=== PATIENT | male | born 1965 | race Caucasian/White ===

== ENCOUNTER 2020-04-10 16:32 | Outpatient (RCR) | payer SELFPAY ==
--- NOTE | 2020-04-10 18:05 | PTOPEVAL ---
Thank you for referring Matthew Pettit to [facility]. Please review, sign, date and return this plan of care [facility]. I agree with and certify that the following plan of care is medically necessary. Referring Physician Date Admitting Provider: Attending Provider: Casey Goldman M.D. Referring Provider: *PT Outpatient Evaluation Start: 04/10/20 17:12 Freq: Status: Active Protocol: Document 04/10/20 17:12 [facility]IL[place] (Rec: 04/10/20 17:56 [facility] [email or web address]) Therapy Assessment Status Assessment Status Assessment Status Evaluation Evaluation Information Problem Diagnosis CVA Onset 03/17/20 Subjective Information Pt. reports that he suffered a Query Text:As Reported By Patient/ stroke on 03/17/20. He Family reports that he was sent to the hospital and recieved CT scan, which revealed stroke. He reports he was in acute care for 1 week. He then was transfered to a rehab bed and discharged on 04/07/20. He states that his left arm has been most affected. He reports that the left leg is also weak. He is using a elvin walker currently. He reports that his goal is to improve l .e. strength and u.e. strength . Prior Level of Function Activity Level (Last 3 Months) Occupation rigging worker Hand Dominance Right Activity of Daily Living Ability Independent Indoor/Home Mobility Independent Community Mobility Independent Stairs Ability Independent Functional Cognition (Planning, Shopping Independent , Taking Medications) Cooking Yes Cleaning Yes Laundry Yes Shopping Yes Driving Yes Home Setting Home Type House Environmental Barriers Stairs, 2-4 Living Situation With Significant Other Support Available Local Family Support Mobility Assistive Devices (Used Last 3 Walker, Elvin Months) Pain Assessment Timing of Pain Assessment Timing of Pain Assessment Pre-Treatment Pain Scale Pain Scale Used Numeric (1 - 10) Self Report Pain Assessment Left Shoulder(s) Reported Pain Level 4 Pain Score Pain Score 4: Self Report
--- NOTE | 2020-04-19 16:09 | OTOPEVAL ---
Thank you for referring Matthew Pettit to [facility]. Please review, sign, date and return this plan of care JOHN. I agree with and certify that the following plan of care is medically necessary. Referring Physician Date Admitting Provider: Attending Provider: Casey Goldman M.D. Referring Provider: *OT Outpatient Evaluation Start: 04/19/20 15:03 Freq: Status: Active Protocol: Document 04/19/20 15:04 MBS (Rec: 04/19/20 16:09 [id number]) Therapy Assessment Status Assessment Status Assessment Status Evaluation Outpatient Past Medical History Neurological History Hx Cerebrovascular Accident (CVA) Yes Cardiovascular History Hx Hypertension Yes Evaluation Information Problem Diagnosis L sided weakness Onset 03/17/20 Cause CVA Subjective Information Patient reports that he had a Query Text:As Reported By Patient/ stroke on 03/17/20 while at [facility]. He initially went to ER at [place] and was transferred to [place] where he was for ~1 week. He went back to [place] for 2 weeks as a swing bed patient. Patient is currently on a soft diet and regular liquids. Patient returned home on with his girlfriend. He reports that his sister has assisted him as well. Since returning home, patient has needed assistance for medication managment, cooking. Patient reports that he able to do most of his dressing and grooming without assist as well as performs sponge bathing. Patient has a sling for his L shoulder that he uses intermittently. Previous Treatments Previous Treatments For This Problem swing bed patient, inpatient rehab Prior Level of Function Activity Level (Last 3 Months) Hand Dominance Right Activity of Daily Living Ability Independent Indoor/Home Mobility Independent Community Mobility Independent Stairs Ability Independent Functional Cognition (Planning, Shopping Independent , Taking Medications) Cooking Yes Cleaning Yes Laundry
--- NOTE | 2020-04-19 17:18 | OTOPEVAL ---
Thank you for referring Matthew Pettit to [facility]. Please review, sign, date and return this plan of care JOHN. I agree with and certify that the following plan of care is medically necessary. Referring Physician Date Admitting Provider: Attending Provider: Casey Goldman M.D. Referring Provider: *OT Outpatient Evaluation Start: 04/19/20 15:03 Freq: Status: Active Protocol: Document 04/19/20 15:04 MBS (Rec: 04/19/20 16:09 [place] [id number]) Therapy Assessment Status Assessment Status Assessment Status Evaluation Outpatient Past Medical History Neurological History Hx Cerebrovascular Accident (CVA) Yes Cardiovascular History Hx Hypertension Yes Evaluation Information Problem Diagnosis L sided weakness Onset 03/17/20 Cause CVA Subjective Information Patient reports that he had a Query Text:As Reported By Patient/ stroke on 03/17/20 while at Family [facility]. He initially went to ER at [place] and was transferred to [place] where he was for ~1 week. He went back to [place] for 2 weeks as a swing bed patient. Patient is currently on a soft diet and regular liquids. Patient returned home on with his girlfriend. He reports that his sister has assisted him as well. Since returning home, patient has needed assistance for medication managment, cooking. Patient reports that he able to do most of his dressing and grooming without assist as well as performs sponge bathing. Patient has a sling for his L shoulder that he uses intermittently. Previous Treatments Previous Treatments For This Problem swing bed patient, inpatient rehab Prior Level of Function Activity Level (Last 3 Months) Hand Dominance Right Activity of Daily Living Ability Independent Indoor/Home Mobility Independent Community Mobility Independent Stairs Ability Independent Functional Cognition (Planning, Shopping Independent , Taking Medications) Cooking Yes Cleaning Yes Laundry
== END 2020-06-07 18:02 | disposition home or self-care (01) ==
LOC: CHSPT 16:32
PROVIDERS: PCP Family Medicine; Visit Provider Family Medicine
DX: R53.1 Weakness (principal); R26.9 Unspecified abnormalities of gait and mobility; I63.9 Cerebral infarction, unspecified
CPT/HCPCS: 97014; 97110; 97112; 97116; 97161; 97165; 97530; G0283

== ENCOUNTER 2021-04-30 18:44 | Emergency (ER) | payer SELFPAY ==
--- NOTE | ~2021-04-30 | CT_ITS ---
EXAMINATION: CT abdomen pelvis wo con DATE: 04/30/2021 21:41 INDICATION: Right flank pain TECHNIQUE: Computed tomography (CT) of the abdomen and pelvis was performed without intravenous contr ast. The dose-length product (DLP) was 545.49 mGy-cm. Automated exposure control and iterative recons truction technique were employed. COMPARISON: 04/09/2017 FINDINGS: The lung bases are clear. The heart size is normal. The liver, spleen, pancreas, gallbladde r, and adrenal glands are normal. There is a 1.8 cm cyst of the left kidney. There is a 10 mm stone i n the right renal pelvis. There is mild hydroureteronephrosis of the proximal right ureter. Fat stran ding is seen surrounding the right renal pelvis. A 9 mm stone is present in the right kidney lower po le. Additional punctate stones are present in the mid and upper pole of the right kidney. There is a 5 mm nonobstructing stone of the left kidney. No pathologically enlarged abdominal or pelvic lymph no mariaelena are identified. There is no free intraperitoneal gas or evidence of bowel obstruction. The append ix is normal. There is calcified atherosclerosis of the aorta and many of the other arteries. There i s mild lumbar spondylosis. IMPRESSION: 1. Stone in a lower pole calyx of the right kidney with mild proximal hydroureteronephrosis on the ri ght and fat stranding surrounding the right renal pelvis, consistent with urinary tract infection. 2. Bilateral nephrolithiasis. Reviewed, dictated and finalized at location A. IMPRESSION: 1. Stone in a lower pole calyx of the right kidney with mild proximal hydrouret eronephrosis on the right and fat stranding surrounding the right renal pelvis, consistent with urinary tract infection. 2. Bilateral nephrolithiasis.
[2021-04-30 19:15] VITALS: BP 168/108; PULSE 95; RESP 20; TEMP 37.2; O2SAT 97
--- NOTE | 2021-04-30 20:40 | ED.ABDPAIN ---
HPI - Abdominal Pain General Chief Complaint: Urogenital-Male Stated Complaint: possible kidney stones Time Seen by Provider: 04/30/21 20:40 Source: patient Mode of arrival: ambulatory Limitations: no limitations History of Present Illness HPI narrative: 55-year-old man with a history of kidney stones comes in today complaining of right flank pain and burning with urination that been present for last 3 days. Patient states he was unable to sleep last night due to the pain. He has had some nausea but no vomiting. Denies fever, chest pain, other abdominal pain, cough, shortness of breath, sore throat and cold symptoms. MD elicited complaint: flank pain Pertinent past history: kidney stones Onset (ago): day(s) (3) Pain Consistency: colicky Location: R flank Severity: severe Quality: sharp Radiation: epigastric Migration to: no migration Exacerbating factors: nothing Relieving factors: nothing Context: confirms history of similar episodes ( patient states that feels like prior episodes of kidney stones.) Associated symptoms: nausea and dysuria Related Data Allergies Allergy/AdvReac Type Severity Reaction Status Date / Time IVP dye Allergy Intermediate Uncoded 01/07/20 13:07 Review of Systems Review of Systems: All systems reviewed & are unremarkable except as noted in HPI and below Constitutional: Constitutional: Denies chills and Denies fever(s) Eyes: Eyes: Denies change in vision and Denies photophobia ENT: Denies nasal congestion and Denies sore throat Cardiovascular: Cardiovascular: Denies chest pain and Denies radiating jaw, neck or arm pain Respiratory: Respiratory: Denies cough and Denies dyspnea Gastrointestinal: Gastrointestinal: Reports abdominal pain, Denies diarrhea, Reports nausea and Denies vomiting Genitourinary: Genitourinary: Denies hematuria, Reports dysuria and Denies urinary frequency Musculoskeletal: Musculoskeletal: Reports as per HPI, Reports back pain ( flank pain), Denies arthralgias and Denies joint swelling Integumentary/Breasts: Skin/Breast: Denies pruritus, Denies erythema and Denies rash Neurologic: Denies vertigo, Denies dizziness and Denies syncope Endocrine: Endocrine: Denies polydipsia and Denies polyuria Hematologic/Lymphatic: Hematologic/Lymphatic: Denies easy bleeding and Denies easy bruising Allergic/Immunologic: Allergic/Immunologic: Denies lip swelling and Denies throat swelling PMFSH Past Medical History Medical History CVA (cerebral vascular accident) Hypertension Type 2 diabetes mellitus Urolithiasis Surgical History Surgical History H/O lithotripsy H/O nephrolithotomy with removal of calculi x2 Hx of tonsillectomy Social History Social History Smoking status: Never smoker Alcohol intake: never Substance use: never Living arrangements: with family Exam Const: General: healthy appearing and alert Orientation/consciousness: patient oriented x3 Limitations: no limitations Other: moderate acute distress. HENMT: Head: normal to inspection Ears: external ears normal, TM's normal bilaterally and EAC's normal General nose exam: Normal nares present Face and sinus: normal facial exam Mouth: Yes moist mucous membranes Throat: posterior oropharynx normal Eyes: Conjunctivae: conjunctivae normal Pupils: Equal, round and reactive pupils present EOM: EOMs intact bilaterally Resp: Effort & Inspection: normal respiratory effort and not labored Auscultation: clear to auscultation bilaterally, no rales, no rhonchi and no wheezes Cardio: Rate: regular rate Rhythm: regular rhythm Heart sounds: no murmurs GI: GI Palp: Yes Soft to palpation, Yes Tenderness to palpation present (GI) ( right flank), No Guarding due to palpation present (GI) and No Rebound tenderness present Auscultation: nor
[2021-04-30] MEDS: HYDROmorphone HCL INJ (*CRX) 2 MG/ML VIAL 0.5 MG IV PUSH (21:00)
[2021-04-30] MEDS: PANTOPRAZOLE SODIUM IV 40 MG VIAL IV PUSH (21:00)
[2021-04-30 21:02] LABS: Add Urine Microscopic? YES; Appearance Urine Clear (Clear); Bilirubin Urine Negative (Negative); Blood Urine Negative (Negative); Color Urine Light Yellow (Yellow); Glucose Urine UA Negative (Negative); Ketones Urine Negative (Negative); Leukocyte Esterase Ur Negative LEU/UL (Negative); Nitrate Urine Negative (Negative); Protein Urine Trace (Negative); Specific Grav Ur 1.025 (1.010-1.020)
[2021-04-30] MEDS: SODIUM CHLORIDE 0.9% IV 1,000 ML 999 ML IV CONT (21:02)
[2021-04-30] MEDS: ONDANSETRON INJ 4 MG/2 ML VIAL IV PUSH (21:03)
[2021-04-30 21:05] LABS: Basophils Absolute Auto 0.11 K/mm3 (0.00-0.10); Basophils Percent Auto 1.5 % (0.0-1.0); Eosinophils Absolute Auto 0.33 K/mm3 (0.02-0.50); Eosinophils Percent Auto 4.4 % (1.0-6.0); Hematocrit 47.7 % (40.0-54.0); Hemoglobin 16.2 g/dL (14.0-18.0); Immature Granulocyte Absolute 0.02 K/mm3 (0.00-0.00); Immature Granulocyte Percent A 0.3 % (0.0-0.0); Lymphocytes Absolute Auto 2.31 K/mm3 (1.10-4.50); Lymphocytes Percent Auto 30.5 % (18.0-42.0); Mean Corpuscular Hemoglobin 28.9 pg (27.0-31.0); Mean Corpuscular Volume 85.2 fL (78.0-102.0); Mean Platelet Volume 11.1 fl (8.7-11.0); Monocytes Absolute Auto 0.48 K/mm3 (0.10-0.90); Monocytes Percent Auto 6.3 % (2.0-11.0); Neutrophils Absolute Auto 4.3 K/mm3 (1.7-7.2); Platelet Count Result 185 K/mm3 (150-420); Red Cell Distribution Width 12.2 % (11.6-14.4); White Blood Count 7.6 K/mm3 (4.8-10.8)
[2021-04-30 21:07] LABS: Bacteria Urine Trace /hpf; RBC Urine 0-2 /hpf (0-2); WBC Urine 0-3 /hpf (0-3)
[2021-04-30 21:15] LABS: Alanine Aminotransferase 25 U/L (16-63); Albumin Level 3.7 g/dL (3.4-5.0); Alkaline Phosphatase 79 U/L (46-116); Anion Gap 13 mmol/L (8-16); Aspartate Amino Transferase 13 U/L (15-37); Bilirubin,Total 0.4 mg/dL (0.00-1.00); Blood Urea Nitrogen 15 mg/dL (7-18); Calcium 8.6 mg/dL (8.5-10.1); Carbon Dioxide 26 mmol/L (21-32); Chloride 103 mmol/L (98-108); Estimated CRCL calculation 85 ml/min; Estimated Glomerular Filt Rate > 60; Glucose 215 mg/dL (70-99); Lipase 115 U/L (73-393); Osmolality Calculated 300 mOsm/kg (285-295); Potassium 3.3 mmol/L (3.5-5.1); Sodium 142 mmol/L (136-145); Total Protein 7.1 g/dL (6.4-8.2)
--- NOTE | 2021-04-30 21:30 | PC.NURSE ---
pt to xray per stretcher with xray staff.
--- NOTE | 2021-04-30 21:45 | PC.NURSE ---
pt returned to room. no complaints voiced. awaiting ct results
--- NOTE | 2021-04-30 22:24 | ECG_ITS ---
Measurements Intervals [place] Rate: 67 P: 30 AL: 198 QRS: 46 QRSD: 96 T: 26 QT: 398 QTc: 423 Interpretive Statements SINUS RHYTHM INCOMPLETE RIGHT BUNDLE BRANCH BLOCK DELAYED PRECORDIAL R/S TRANSITION CONSIDER INFERIOR INFARCT, AGE INDETERMINATE BASELINE ARTIFACT- II, III, AVF ABNORMAL ECG Electronically Signed On 05-01-2021 6:38:12 CDT by Harry Carreno D.O.
[2021-04-30] MEDS: lisinopriL 5 MG TABLET PO (23:05)
[2021-04-30 23:19] VITALS: BP 197/111; PULSE 77; RESP 20; TEMP 36.9; O2SAT 93
== END 2021-04-30 23:30 | disposition home or self-care (01) ==
PROVIDERS: Emergency Provider Emergency Medicine
DX: N20.9 Urinary calculus, unspecified (principal); N39.0 Urinary tract infection, site not specified
CPT/HCPCS: 36415; 74176; 80053; 81001; 83605; 83690; 85025; 93005; 96374; 96375; 99283; 99284; A9270; C9113; J1170; J2405; J7030

== ENCOUNTER 2021-06-03 18:26 | Emergency (ER) | payer OTHER, SELFPAY ==
[2021-06-03 18:26] VITALS: BP 164/112; PULSE 96; RESP 16; TEMP 36.1; O2SAT 96
--- NOTE | 2021-06-03 18:42 | ED.URI ---
HPI - URI/Sore Throat General Chief Complaint: Upper Respiratory Infection Stated Complaint: Runny nose, Can not tell taste or smell. Time Seen by Provider: 06/03/21 18:42 Source: patient Mode of arrival: ambulatory Limitations: no limitations History of Present Illness HPI Narrative: 55-year-old man with a history of type 2 diabetes and nephrolithiasis comes in today complaining of 2 days of nasal congestion, body aches, feeling warm and cold and lack of smell and taste. States he has had the COVID vaccine. He denies chest pain, shortness of breath, vomiting, diarrhea and sick exposures. In 2 weeks he is due to have surgery for kidney stone. MD elicited complaint: cough, rhinorrhea and nasal congestion Onset (ago): day(s) (2) Consistency: constant Severity: mild Able to tolerate fluids by mouth: Yes Exacerbating factors: nothing Relieving factors: nothing Associated symptoms: fever, chills, myalgias, diaphoresis, rhinorrhea, nasal congestion and sore throat Treatments prior to arrival: none Related Data Allergies Allergy/AdvReac Type Severity Reaction Status Date / Time IVP dye Allergy Intermediate Uncoded 01/07/20 13:07 Review of Systems Review of Systems: All systems reviewed & are unremarkable except as noted in HPI and below Constitutional: Constitutional: Reports chills and Reports fever(s) Eyes: Eyes: Denies change in vision and Denies photophobia ENT: Denies dysphagia, Reports nasal congestion and Reports sore throat Cardiovascular: Cardiovascular: Denies chest pain and Denies radiating jaw, neck or arm pain Respiratory: Respiratory: Reports cough and Denies dyspnea Gastrointestinal: Gastrointestinal: Denies abdominal pain, Denies nausea and Denies vomiting Musculoskeletal: Musculoskeletal: Denies back pain, Denies arthralgias, Denies joint swelling and Denies muscle cramps Integumentary/Breasts: Skin/Breast: Denies pruritus, Denies erythema and Denies rash Neurologic: Denies vertigo, Denies dizziness and Denies syncope Hematologic/Lymphatic: Hematologic/Lymphatic: Denies easy bleeding and Denies easy bruising Allergic/Immunologic: Allergic/Immunologic: Denies lip swelling and Denies throat swelling PMFSH Past Medical History Medical History CVA (cerebral vascular accident) Hypertension Type 2 diabetes mellitus Urolithiasis Surgical History Surgical History H/O lithotripsy H/O nephrolithotomy with removal of calculi x2 Hx of tonsillectomy Social History Social History Smoking status: Never smoker Alcohol intake: never Substance use: never Exam Const: General: no acute distress and alert Orientation/consciousness: patient oriented x3 Limitations: no limitations HENMT: Head: normal to inspection Ears: external ears normal, TM's normal bilaterally and EAC's normal General nose exam: Normal nares present Face and sinus: normal facial exam Mouth: Yes moist mucous membranes Throat: posterior oropharynx normal Eyes: Conjunctivae: conjunctivae normal Pupils: Equal, round and reactive pupils present EOM: EOMs intact bilaterally Resp: Effort & Inspection: normal respiratory effort and not labored Auscultation: clear to auscultation bilaterally, no rales, no rhonchi and no wheezes Cardio: Rate: regular rate Rhythm: regular rhythm Heart sounds: no murmurs Skin: General skin exam: normal color, no jaundice and no pallor Rashes: no rashes Neuro: General: patient oriented x3, moves all extremities, no focal motor deficits and CN's II-XI intact bilaterally Speech: normal speech Gait exam (Neuro): Normal gait present Extrem: General: no clubbing, cyanosis or edema Psych: Appearance: grossly abnormal and poorly kempt Mental Status: mental status grossly abnormal Affect: No normal affect Attitude: not cooperative
[2021-06-03 19:17] LABS: Influenza Control Valid (Valid); SARS-CoV-2 Ag Positive (Negative)
[2021-06-03 19:40] VITALS: BP 178/97; PULSE 94; RESP 18; TEMP 36.6; O2SAT 96
== END 2021-06-03 19:51 | disposition home or self-care (01) ==
PROVIDERS: Emergency Provider Emergency Medicine
DX: U07.1 COVID-19 (principal)
CPT/HCPCS: 87426; 87804; 99283; C9803

== ENCOUNTER 2022-02-08 12:52 | Emergency (ER) | payer OTHER, SELFPAY ==
[2022-02-08 12:55] VITALS: BP 201/110; PULSE 80; RESP 16; TEMP 36.2; O2SAT 97
[2022-02-08 13:10] LABS: Glucose Point of Care 192 mg/dl (65-105)
[2022-02-08 13:15] VITALS: BP 168/103; PULSE 82; RESP 16; O2SAT 96
--- NOTE | 2022-02-08 13:15 | ED.DIZZY ---
HPI - Dizziness General Chief Complaint: Dizziness Stated Complaint: DIZZY AND NAUSEATED Time Seen by Provider: 02/08/22 13:15 Source: patient and RN notes reviewed Mode of arrival: ambulatory Limitations: no limitations History of Present Illness MD elicited complaint: dizziness Onset (ago): day(s) (1) Timing: gradual onset Severity: moderate Description: room spinning and off-balance Context: change in body position History of similar symptoms: Yes Exacerbating factors: change in body position Relieving factors: remaining still Associated symptoms: nausea Related Data Allergies Allergy/AdvReac Type Severity Reaction Status Date / Time IVP dye Allergy Intermediate Hives Uncoded 02/08/22 13:30 Review of Systems Review of Systems: All systems reviewed & are unremarkable except as noted in HPI and below PMFSH Past Medical History Medical History CVA (cerebral vascular accident) Hypertension Type 2 diabetes mellitus Urolithiasis Surgical History Surgical History H/O lithotripsy H/O nephrolithotomy with removal of calculi x2 Hx of tonsillectomy Social History Social History Smoking status: Never smoker Alcohol intake: never Substance use: never Exam Const: General: healthy appearing, no acute distress and alert Nutritional Appearance: well nourished Orientation/consciousness: patient oriented x3 HENMT: Head: normal to inspection Face and sinus: normal facial exam Mouth: Yes moist mucous membranes Eyes: Conjunctivae: conjunctivae normal Pupils: Equal, round and reactive pupils present EOM: EOMs intact bilaterally Neck: Neck: normal visual inspection Resp: Effort & Inspection: normal respiratory effort Auscultation: clear to auscultation bilaterally Cardio: Rate: regular rate Rhythm: regular rhythm GI: Auscultation: normal bowel sounds Back/Spine/Pelvis: Cervical Spine: cervical ROM normal Thoracic/Lumbar Spine: thoraco-lumbar ROM normal Skin: General skin exam: normal color Neuro: General: patient oriented x3, moves all extremities, no meningeal signs, no focal motor deficits and CN's II-XI intact bilaterally Cranial nerves: Yes Nystagmus not present Speech: normal speech Gait exam (Neuro): Normal gait present Extrem: General: normal to inspection and no clubbing, cyanosis or edema Psych: Appearance: grossly normal and well kempt Mental Status: mental status grossly normal Affect: normal affect Attitude: cooperative Thought content: Yes Normal thought content present Course Course Emergency Course: patient improved after meclizine his dizziness is better. Blood pressure improved following clonidine. Vital Signs Vital signs: Vital Signs Temperature 36.2 C L 02/08/22 12:55 Pulse Rate 80 02/08/22 12:55 Respiratory Rate 16 02/08/22 12:55 Blood Pressure 201/110 H 02/08/22 12:55 Pulse Oximetry 97 02/08/22 12:55 Temperature 36.2 C L 02/08/22 12:55 Pulse Rate 70 02/08/22 15:00 Respiratory Rate 18 02/08/22 15:00 Blood Pressure 126/76 02/08/22 15:00 Pulse Oximetry 98 02/08/22 15:00 MDM - Dizziness Lab Data Labs: Lab Results 02/08/22 Range/Units 13:08 POC Capillary Glucose 192 H (65-105) mg/dl Discharge Plan Discharge Clinical Impression: Benign paroxysmal positional vertigo Qualifiers: Laterality: unspecified laterality Qualified Code(s): H81.10 - Benign paroxysmal vertigo, unspecified ear Hypertension Qualifiers: Hypertension type: primary hypertension Qualified Code(s): I10 - Essential (primary) hypertension Patient Disposition: Home, Self-Care Condition: Stable Instructions: Benign Paroxysmal Positional Vertigo (ED) Additional Instructions: Follow-up with your primary care physician in the next 10-14 days to get back on blood pressure medicines.
[2022-02-08] MEDS: cloNIDine HCL 0.1 MG TABLET 0.3 MG PO (13:21)
[2022-02-08] MEDS: MECLIZINE HCL 25 MG TABLET PO (13:34)
[2022-02-08 13:45] VITALS: BP 161/102; PULSE 80; RESP 16; O2SAT 97
[2022-02-08] MEDS: ONDANSETRON HCL ODT 4 MG TABLET PO (14:26)
--- NOTE | 2022-02-08 14:28 | PC.NURSE ---
PT REPORTS NAUSEA, ERP WAS NOTIFIED. PT THEN BEGINS TO HAVE DRY HEAVES. MEDICATION ADMINISTERED ORDERED. WILL CONTINUE TO MONITOR PRIOR TO DISCHARGING PT HOME.
[2022-02-08 14:30] VITALS: BP 140/86; PULSE 73; RESP 18; O2SAT 98
[2022-02-08 15:00] VITALS: BP 126/76; PULSE 70; RESP 18; O2SAT 98
== END 2022-02-08 15:00 | disposition home or self-care (01) ==
PROVIDERS: Emergency Provider Emergency Medicine
DX: H81.10 Benign paroxysmal vertigo, unspecified ear (principal); I10 Essential (primary) hypertension
CPT/HCPCS: 82948; 99283; A9270

== ENCOUNTER 2022-02-15 20:14 | Emergency (ER) | payer OTHER, SELFPAY ==
[2022-02-15] VITALS (35 sets, daily range): BP systolic 118–183; BP diastolic 67–126; PULSE 76–89; RESP 9–30; TEMP 36.5; O2SAT 86–99
--- NOTE | ~2022-02-15 | XR_ITS ---
EXAMINATION: XR chest 1V portable DATE: 02/15/2022 21:23 INDICATION: Chest pain. TECHNIQUE: A single frontal view of the chest was obtained. COMPARISON: CT abdomen and pelvis 02/15/2022 FINDINGS: There is no pneumonia, pleural effusion, or pneumothorax. The heart size is normal. IMPRESSION: 1. No acute cardiopulmonary disease. Reviewed, dictated and finalized at location A.
--- NOTE | ~2022-02-15 | CT_ITS ---
EXAMINATION: CT abdomen pelvis wo con DATE: 02/15/2022 21:23 INDICATION: Nausea and vomiting. TECHNIQUE: Computed tomography (CT) of the abdomen and pelvis was performed without intravenous contr ast. Automated exposure control and iterative reconstruction technique were employed. The dose-length product was 1565.62 mGy-cm. COMPARISON: CT abdomen and pelvis 04/30/2021 FINDINGS: The visualized portions of the lung bases demonstrate mild atelectasis. There is mild scarr ing in paraspinal right lower lobe. No pleural effusion. The heart size is normal. There are coronary artery calcifications. No pericardial effusion. The liver, gallbladder, spleen, pancreas, adrenal gl ands, and right kidney are normal. There is an 18 mm cyst in left kidney. There are two 1 mm stones i n left kidney. The prostate is mildly enlarged. There is diverticulosis of the colon without evidence of diverticulitis. The appendix is normal. There are no dilated loops of bowel. There are no patholo gically enlarged lymph nodes. There is no free intraperitoneal fluid. There is prominent fat in right inguinal canal that may be a hernia. There is mild lumbar spondylosis. There are bridging endplate o steophytes at multiple levels in the thoracic spine, consistent with diffuse idiopathic skeletal hype rostosis (DISH). IMPRESSION: 1. No etiology for the patient's symptoms. Reviewed, dictated and finalized at location A.
--- NOTE | ~2022-02-15 | CT_ITS ---
EXAMINATION: CT brain wo con DATE: 02/15/2022 21:23 INDICATION: Facial weakness. TECHNIQUE: Computed tomography (CT) of the head was performed without intravenous contrast. The mA wa s adjusted according to patient size. Iterative reconstruction technique was employed. The dose-lengt h product was 681.00 mGy-cm. COMPARISON: None FINDINGS: There are scattered areas of low attenuation in the cerebral white matter. There is an old infarct involving the right basal ganglia and right internal capsule. There is an old infarct in the right cerebellum. There is no intracranial hemorrhage, acute infarction, or abnormal intracranial mas s lesion. The ventricles are normal in size. The orbits are normal. There is mild mucosal thickening in the paranasal sinuses. The mastoid air cells are normal. IMPRESSION: 1. Old infarcts involving the right basal ganglia, right internal capsule, and right cerebellum. 2. Moderate nonspecific cerebral white matter disease, which likely represents chronic small vessel i schemic disease. Reviewed, dictated and finalized at location A. IMPRESSION: 1. Old infarcts involving the right basal ganglia, right internal capsule, and right cerebellum. 2. Moderate nonspecific cerebral white matter disease, which likely represents chronic small vessel ischemic disease.
--- NOTE | 2022-02-15 20:23 | ECG_ITS ---
Measurements Intervals [place] Rate: 77 P: 62 [place]: 188 QRS: 40 QRSD: 113 T: 48 QT: 385 QTc: 438 Interpretive Statements SINUS RHYTHM INCOMPLETE RIGHT BUNDLE BRANCH BLOCK INFERIOR INFARCT, AGE INDETERMINATE BORDERLINE ST-T WAVE ABNORMALITY- ANTEROLATERAL LEADS BASELINE ARTIFACT- II, III, AVF ABNORMAL ECG Electronically Signed On 02-15-2022 21:37:27 CDT by Harry Carreno D.O.
[2022-02-15] MEDS: METOPROLOL TARTRATE INJ 5 MG/5 ML VIAL 2.5 MG IV PUSH ×2 (20:37→21:37)
[2022-02-15] MEDS: PANTOPRAZOLE SODIUM IV 40 MG VIAL IV PUSH (20:38)
[2022-02-15] MEDS: SODIUM CHLORIDE 0.9% IV 500 ML 999 ML IV CONT (20:38)
[2022-02-15] MEDS: ONDANSETRON INJ 4 MG/2 ML VIAL IV PUSH (20:38)
[2022-02-15 20:52] LABS: Basophils Absolute Auto 0.11 K/mm3 (0.00-0.10); Basophils Percent Auto 1.2 % (0.0-1.0); Eosinophils Absolute Auto 0.26 K/mm3 (0.02-0.50); Eosinophils Percent Auto 2.8 % (1.0-6.0); Hematocrit 52.4 % (40.0-54.0); Hemoglobin 17.2 g/dL (14.0-18.0); Immature Granulocyte Absolute 0.05 K/mm3 (0.00-0.00); Immature Granulocyte Percent A 0.5 % (0.0-0.0); Lymphocytes Absolute Auto 2.73 K/mm3 (1.10-4.50); Lymphocytes Percent Auto 29.1 % (18.0-42.0); Mean Corpuscular HGB Conc 32.8 g/dL (32.0-36.0); Mean Corpuscular Hemoglobin 29.2 pg (27.0-31.0); Mean Corpuscular Volume 88.8 fL (78.0-102.0); Mean Platelet Volume 11.3 fl (8.7-11.0); Monocytes Absolute Auto 0.64 K/mm3 (0.10-0.90); Monocytes Percent Auto 6.8 % (2.0-11.0); Neutrophils Absolute Auto 5.6 K/mm3 (1.7-7.2); Neutrophils Percent Auto 59.6 % (50.0-70.0); Platelet Count Result 223 K/mm3 (150-420); Red Cell Distribution Width 12.2 % (11.6-14.4); White Blood Count 9.4 K/mm3 (4.8-10.8)
--- NOTE | 2022-02-15 21:04 | PC.NURSE ---
PT HAS SIG OTHER AT BEDSIDE, HE IS CURRENTLY IN CT. PT HAD REMOVED IV SITE TO LEFT HAND, THRASHING ABOUT ON THE STRETCHER. NEW SITE ESTABLISHED. PT HAS BEEN MEDICATED FOR NAUSEA AND HTN, WILL CONTINUE TO MONITOR.
[2022-02-15 21:10] LABS: Alanine Aminotransferase 24 U/L (16-63); Alkaline Phosphatase 93 U/L (46-116); Anion Gap 8 mmol/L (8-16); Aspartate Amino Transferase 12 U/L (15-37); Bilirubin,Total 0.6 mg/dL (0.00-1.00); Blood Urea Nitrogen 15 mg/dL (7-18); Carbon Dioxide 29 mmol/L (21-32); Chloride 102 mmol/L (98-108); Estimated CRCL calculation 78 ml/min; Estimated Glomerular Filt Rate > 60; Glucose 188 mg/dL (70-99); Osmolality Calculated 293 mOsm/kg (285-295); Potassium 2.7 mmol/L (3.5-5.1); Sodium 139 mmol/L (136-145); Total Protein 7.9 g/dL (6.4-8.2); Troponin I 24.1 ng/L (0.00-60.4)
--- NOTE | 2022-02-15 21:10 | ED.DIZZY ---
HPI - Dizziness General Chief Complaint: Dizziness Stated Complaint: AMB Time Seen by Provider: 02/15/22 20:18 Source: patient, EMS and RN notes reviewed Mode of arrival: EMS Limitations: no limitations History of Present Illness MD elicited complaint: dizziness Onset (ago): week(s) (1) Timing: gradual onset Severity: moderate Description: sense of movement and lightheadedness History of similar symptoms: Yes Exacerbating factors: movement/ambulation Relieving factors: remaining still and keeping eyes closed Associated symptoms: nausea, vomiting and chills Associated neuro symptoms: other (mild persistent dizziness. pt denied any acute stroke sxs.) Related Data Allergies Allergy/AdvReac Type Severity Reaction Status Date / Time IVP dye Allergy Intermediate Hives Uncoded 03/11/22 07:51 Review of Systems Review of Systems: All systems reviewed & are unremarkable except as noted in HPI and below Neurologic: Reports dizziness PMFSH Past Medical History Medical History CVA (cerebral vascular accident) Hypertension Type 2 diabetes mellitus Urolithiasis Vertigo Surgical History Surgical History H/O lithotripsy H/O nephrolithotomy with removal of calculi x2 Hx of tonsillectomy Social History Social History (Updated 03/11/22 @ 07:52 by Sujey Zheng) Smoking status: Never smoker Alcohol intake: never Substance use: never Exam Const: General: alert and ill appearing Nutritional Appearance: obese Orientation/consciousness: patient oriented x3 HENMT: Head: normal to inspection Ears: TM's normal bilaterally and external ear abnormal General nose exam: Normal external nose present and Normal nares present Face and sinus: sinuses nontender Mouth: Yes moist mucous membranes Throat: posterior oropharynx normal Eyes: Conjunctivae: conjunctivae normal Pupils: Equal, round and reactive pupils present EOM: EOMs intact bilaterally Neck: Neck: normal visual inspection and no lymphadenopathy Resp: Effort & Inspection: normal respiratory effort Auscultation: clear to auscultation bilaterally Cardio: Rate: regular rate Rhythm: regular rhythm GI: GI Palp: Yes Soft to palpation and No Tenderness to palpation present (GI) Auscultation: normal bowel sounds : General: Yes bladder normal to palpation and Yes no CVA tenderness Male General Exam: Yes normal external exam Back/Spine/Pelvis: Back: no CVA tenderness Skin: General skin exam: normal color Rashes: no rashes Neuro: General: patient oriented x3, moves all extremities, no meningeal signs, no focal motor deficits and CN's II-XI intact bilaterally Extrem: General: normal to inspection and no pedal edema Psych: Appearance: grossly normal Affect: Sad affect present and Anxious affect present Thought content: Yes Normal thought content present Course Course Emergency Course: Pt was stable in the ED, less dizziness. Reevaluation(s) Date: 02/15/22 Time: 21:13 Vital Signs Vital signs: Vital Signs Temperature 36.5 C 02/15/22 20:14 Pulse Rate 87 02/15/22 20:14 Respiratory Rate 16 02/15/22 20:14 Blood Pressure 183/110 H 02/15/22 20:14 Pulse Oximetry 99 02/15/22 20:14 Oxygen Delivery Room Air 02/15/22 20:14 Temperature 36.5 C 02/15/22 20:14 Pulse Rate 80 02/16/22 06:08 Respiratory Rate 22 H 02/16/22 04:15 Blood Pressure 130/91 H 02/16/22 02:31 Pulse Oximetry 93 02/16/22 04:45 Oxygen Delivery Room Air 02/15/22 20:14 MDM - Dizziness Differential Diagnosis Differential diagnosis: Likely benign paroxysmal positional vertigo, orthostatic hypotension and transient cerebral ischemia Medical Records Attestation: I reviewed the patient's medical records. Lab Data Result diagrams: 02/15/22 20:35 02/16/22 04:20 Labs: Lab Results 02/15/22 02/15/22 02/15/22 Range/
[2022-02-15 21:13] LABS: Lactic Acid Reflex 3.5 mmol/L (0.4-2.0)
--- NOTE | 2022-02-15 21:27 | PC.NURSE ---
PT HAS RETURNED FROM CT, PT REMAINS HYPERTENSIVE. PT TO RECEIVE ANOTHER 2.5MG METOPROLOL. PT LINENS HAVE BEEN CHANGED AND PT READJUSTED IN BED, CONTINUES TO REPORT NAUSEA, STATES WORSE WITH ANY MOVEMENT OF HEAD. WILL CONTINUE TO MONITOR.
[2022-02-15] MEDS: PROMETHAZINE HCL 25 MG/ML AMPUL IM (21:38)
--- NOTE | 2022-02-15 22:27 | PC.NURSE ---
PT IS RESTING ON STRETCHER WITH LIGHTS OFF AND WARM BLANKETS PROVIDED. SIG OTHER AT BEDSIDE. VSS, REPORTS NAUSEA HAS IMPROVED, DIZZINESS IS BETTER IF HE DOESN'T MOVE HIS HEAD. NO NEURO DEFICITS ARE NOTED. WILL CONTINUE TO MONITOR.
[2022-02-15 23:29] LABS: Add Urine Microscopic? YES; Appearance Urine Clear (Clear); Bilirubin Urine Negative (Negative); Blood Urine Negative (Negative); Color Urine Light Yellow (Yellow); Glucose Urine UA 3+ (Negative); Ketones Urine Negative (Negative); Leukocyte Esterase Ur Negative (Negative); Nitrate Urine Negative (Negative); Protein Urine Negative (Negative); pH Urine 6.5 (5.0-8.0)
[2022-02-15 23:34] LABS: RBC Urine None seen /hpf (0-2); Squamous Epithelial Cell Urine None seen /hpf (Few); WBC Urine None seen /hpf (0-3)
[2022-02-15 23:47] LABS: Reflex Lactic Acid Yes or No Add Lactic
[2022-02-16] VITALS (38 sets, daily range): BP systolic 110–189; BP diastolic 78–106; PULSE 69–83; RESP 11–23; O2SAT 89–96
--- NOTE | 2022-02-16 00:16 | PC.NURSE ---
NO CHANGE IN PT STATUS, HE IS CURRENTLY AWAITING LACTIC REDRAW. WILL CONTINUE TO MONITOR.
[2022-02-16 00:33] LABS: Lactic Acid 1.9 mmol/L (0.4-2.0)
[2022-02-16] MEDS: KCL 20 MEQ/SW 100 ML 100 ML 50 MEQ IVPB (01:02)
[2022-02-16] MEDS: POTASSIUM CHLORIDE 20 MEQ TABLET 60 MEQ PO (01:03)
[2022-02-16] MEDS: MECLIZINE HCL 25 MG TABLET PO (01:07)
--- NOTE | 2022-02-16 01:42 | PC.NURSE ---
PT IS RESTING ON STRETCHER WITH IV MEDICATION INFUSING ORDERED WITHOUT DIFFICULTY. PT IS AWARE OF PLAN TO DC POST INFUSION. SIG OTHER AT BEDSIDE. NAD NOTED. PT WAS ABLE TO SIT UP ON HIS OWN AND TAKE PILLS WITHOUT DIFFICULTY. PT IS P-W-D, NO LONGER DIAPHORETIC. NO EMESIS NOTED DURING ED VISIT, RETCHING HAS ALSO STOPPED. WILL CONTINUE TO MONITOR.
--- NOTE | 2022-02-16 03:51 | PC.NURSE ---
PT CONTINUES TO REST ON STRETCHER NAD NOTED. SIG OTHER HAS LEFT FOR A WHILE. VSS PER MONITOR. PT IS TO HAVE K+ REDRAWN. WILL CONTINUE TO MONITOR.
[2022-02-16 04:42] LABS: Potassium 3.9 mmol/L (3.5-5.1)
== END 2022-02-16 05:00 | disposition home or self-care (01) ==
PROVIDERS: Emergency Provider Emergency Medicine; PCP Family Medicine
DX: R42 Dizziness and giddiness (principal); E87.6 Hypokalemia
CPT/HCPCS: 36415; 70450; 71045; 74176; 80053; 81001; 83605; 84132; 84484; 85025; 93005; 96361; 96365; 96366; 96372; 96374; 96375; 99284; A9270; C9113; J2405; J2550; J3480; J7040

== ENCOUNTER 2022-02-16 07:02 | Outpatient (CLI) | payer OTHER, SELFPAY ==
--- NOTE | ~2022-02-16 | MR_ITS ---
EXAMINATION: MR brain IAC wo con DATE: 02/16/2022 09:08 INDICATION: Dizziness and giddiness. TECHNIQUE: Magnetic resonance imaging (MRI) of the brain, brainstem, and internal auditory canals was performed without intravenous contrast. COMPARISON: Head CT 02/15/2022 FINDINGS: There is an acute infarct in inferior right cerebellum. There is an old infarct involving t he right basal ganglia and right internal capsule. There are scattered areas of nonspecific increased T2-weighted signal intensity in the cerebral white matter. There is no intracranial hemorrhage or ab normal mass lesion. The ventricles are normal in size. The internal auditory canals and inner and mid dle ears are normal. The mastoid air cells are normal. The orbits are normal. There is mild mucosal t hickening in the paranasal sinuses. IMPRESSION: 1. Acute infarct in inferior right cerebellum. 2. Old infarct involving the right basal ganglia and right internal capsule. 3. Moderate nonspecific cerebral white matter disease, which likely represents chronic small vessel i schemic disease. Reviewed, dictated and finalized at location B. IMPRESSION: 1. Acute infarct in inferior right cerebellum. 2. Old infarct involving the right basal ganglia and right internal capsule. 3. Moderate nonspecific cerebral white matter disease, which likely represents chronic small vessel ischemic disease.
== END 2022-02-16 07:03 | disposition home or self-care (01) ==
LOC: CHSIMG 07:03
PROVIDERS: PCP Family Medicine; Visit Provider Family Medicine
DX: R42 Dizziness and giddiness (principal)
CPT/HCPCS: 70551

== ENCOUNTER 2022-02-21 14:10 | Outpatient (CLI) | payer OTHER, SELFPAY ==
--- NOTE | ~2022-02-21 | US_ITS ---
EXAMINATION: US carotid duplex BI DATE: 02/21/2022 14:35 INDICATION: TECHNIQUE: Grayscale, color Doppler, and pulsed Doppler images of the cervical carotid arteries were obtained. The degree of vessel stenosis is placed in one of the following categories: normal, <50%, 5 0-69%, >=70% but less than near-occlusion, near-occlusion, or total occlusion. Note that percent sten osis relative to normal distal artery lumen diameter is indirectly measured from velocity measurement s as described by Jeronimo, et al. Radiology 2003; 229:340-346. Notes: Normal: Peak systolic velocity <125 centimeters/sec and no plaque <50%. Peak systolic velocity <125 ( EDV <40; ICA/CCA PSV ratio <2.0; used these factors only a tandem lesions or low cardiac output or co ntralateral disease) 50-69 %: PSV 125-230 (EDV 40-100; ratio 2-4) >= 70% but less than near occlusion: PSV greater than 230 (EDV > 100; ratio> 4.0) Near Occlusion: PSV that is variable; markedly narrowed lumen Occlusion: Absent flow on color/spectral Doppler and no lumen on bedoya scale. COMPARISON: None. FINDINGS: RIGHT: The right common carotid artery (CCA) peak systolic velocity (PSV) is 92 cm/s. The right internal car otid artery (ICA) PSV is 74 cm/s. The right ICA end-diastolic velocity (EDV) is 24 cm/s. The right IC A/CCA PSV ratio is 0.8. The external carotid artery (ECA) PSV is 196 cm/s. There is antegrade flow in the right vertebral artery. LEFT: The left CCA PSV is 149 cm/s. The left ICA PSV is 62 cm/s. The left ICA EDV is 19 cm/s. The left ICA/ CCA PSV ratio is 0.4. The ECA PSV is 84 cm/s. There is antegrade flow in the left vertebral artery. IMPRESSION: 1. Less than 50% stenosis in the right internal carotid artery by sonographic criteria. 2. Less than 50% stenosis in the left internal carotid artery by sonographic criteria. Reviewed, dictated and finalized at location B. IMPRESSION: 1. Less than 50% stenosis in the right internal carotid artery by sonographic clementina willis. 2. Less than 50% stenosis in the left internal carotid artery by sonographic jennifer marlow.
== END 2022-02-21 14:11 | disposition home or self-care (01) ==
LOC: CHSIMG 14:12
PROVIDERS: PCP Family Medicine; Visit Provider Family Medicine
DX: I63.9 Cerebral infarction, unspecified (principal)
CPT/HCPCS: 93880

== ENCOUNTER 2022-03-15 13:24 | Outpatient (CLI) | payer OTHER, SELFPAY ==
--- NOTE | 2022-03-15 13:30 | ECHO_ITS ---
Patient Info Name: Matthew Pettit Age: 56 years : 1965 Gender: Male Ht: 70 in Wt: 260 lbs BSA: 2.46 m2 HR: 81 bpm BP: 167 / 107 mmHg Heart Rhythm: Sinus Rhythm Technical Quality: Fair Exam Date: 03/15/2022 1:37 PM Exam Location: [facility] Patient Status: Outpatient Admit Date: 03/15/2022 Staff Ordering Physician: Hernán Baldwin DO Group Program Manager: Veronica Roldan RDCS Attending Provider: Hernán Baldwin DO Referring Physician: Denny MEEHAN; Exam Type: CA echo doppler color flow Study Info Indications - Cerebral infarction, unspecified Complete two-dimensional, color flow and Doppler transthoracic echocardiogram is performed. Summary 1. Complete two-dimensional, color flow and Doppler transthoracic echocardiogram is performed. 2. Left ventricular chamber dimension is normal. 3. Left ventricular systolic function is normal, estimated at 60-65%. 4. There is mildly increased left ventricular wall thickness. 5. The left ventricular diastolic function is grade I diastolic dysfunction. 6. E/e' 6 is not elevated. 7. There is mild aortic valve sclerosis. 8. No pulmonary hypertension, estimated pulmonary arterial systolic pressure is 30 mmHg. Left Ventricle E/e' 6 is not elevated. Left ventricular chamber dimension is normal. Left ventricular systolic function is normal, estimated at 60-65%. There is mildly increased left ventricular wall thickness. The left ventricular diastolic function is grade I diastolic dysfunction. Right Ventricle Right ventricular systolic function is normal with normal TAPSE 2.1 cm. Right ventricular chamber dimension is normal. Left Atria Left atrial chamber dimension is normal. Right Atria Right atrial chamber dimension is normal. Aortic Valve The aortic valve is trileaflet. There is mild aortic valve sclerosis. There is no aortic valve stenosis. There is no aortic valve regurgitation. Pulmonic Valve There is no pulmonic regurgitation. Mitral Valve There is no mitral valve stenosis. There is no mitral valve regurgitation. Tricuspid Valve There is no tricuspid valve regurgitation. No pulmonary hypertension, estimated pulmonary arterial systolic pressure is 30 mmHg. Pericardium/Pleural There is no pericardial effusion. Inferior Vena Cava Normal inferior vena cava with >50% collapse upon inspiration consistent with normal right atrial pressure, 5 mmHg. Aorta The aortic root size at the sinus of Valsalva is normal. Left Ventricular Outflow Tract Name Value Normal LVOT 2D LVOT Diameter 2.0 cm LVOT Doppler LVOT Peak Velocity 94 cm/s LVOT Peak Gradient 4 mmHg LVOT Mean Gradient 2 mmHg LVOT VTI 15 cm LVOT VTI/AV VTI Ratio 0.7 LVOT Stroke Volume 48 ml Pulmonic Valve Name Value Normal
== END 2022-03-15 13:25 | disposition home or self-care (01) ==
LOC: CHSIMG 13:26
PROVIDERS: PCP Family Medicine; Visit Provider Family Medicine
DX: I63.9 Cerebral infarction, unspecified (principal)
CPT/HCPCS: 93306

== ENCOUNTER 2022-04-10 14:58 | Outpatient (RCR) | payer OTHER, SELFPAY ==
--- NOTE | 2022-04-10 15:50 | PTOPEVAL ---
Thank you for referring Matthew Pettit to [facility].? The patient is scheduled to be seen for therapy? __2__x/week for 10 visits. Please review, sign, date and return this plan of care JOHN. I agree with and certify that the following plan of care is medically necessary. Referring Physician Date Admitting Provider: Attending Provider: Hernán Baldwin DO Referring Provider: *PT Outpatient Evaluation Start: 02/18/22 15:12 Freq: Status: Active Protocol: Document 04/10/22 15:00 NILTON (Rec: 04/10/22 15:49 NILTON [id number]) Therapy Assessment Status Assessment Status Assessment Status Evaluation Outpatient Past Medical History Neurological History Hx Cerebrovascular Accident (CVA) Yes: LEFT FACIAL DROOP RESIDUAL Cardiovascular History Hx Hypertension Yes Genitourinary History Hx Kidney Stones Yes: lithotripsy multiple times Endocrine History Hx Diabetes Yes HEENT History Hx Tonsillectomy Yes Evaluation Information Problem Diagnosis cerebral infarction Onset 02/06/22 Subjective Information Pt. reports that he suffered a Query Text:As Reported By Patient/ stroke on 02/06/22. He reports Family that since then he has been participating in HH therapy. He reports that his treatment focused on strength and balance. He reports that he has been able to walk better, but is still feeling unsteady. He reports that he uses a cane or walker occassionally. He reports that he does not use an AD for short distances, but notices he does grab for furniture. He enters the clinic without an AD. He denies any recent falls. He denies any current dizziness. He reports that he would like to be able to walk anywhere without feeling unsteady. Pain Assessment Timing of Pain Assessment Timing of Pain Assessment Pre-Treatment Self Report Self Report Pain Level 0 Pain Score Pain Score 0: Self Report Lower Extremity Muscle Strength Testing General Lower Extremity Strength Gross Lower Extremity Strength -bilateral hip flexion 4/5 -bilateral hip abduction 4-/5 -bilateral knee flexion 5/5
== END 2022-05-09 17:30 | disposition home or self-care (01) ==
LOC: CHSPT 14:58
PROVIDERS: PCP Family Medicine; Visit Provider Family Medicine
DX: R42 Dizziness and giddiness (principal); Z86.73 Personal history of transient ischemic attack (TIA), and cerebral infarction without residual deficits
CPT/HCPCS: 97110; 97112; 97161

== ENCOUNTER 2023-05-28 14:36 | Outpatient (CLI) | payer OTHER, SELFPAY ==
[2023-05-28 16:06] LABS: Albumin Level 3.8 g/dL (3.4-5.0); Anion Gap 12 mmol/L (8-16); Blood Urea Nitrogen 21 mg/dL (7-18); Calcium 9.1 mg/dL (8.5-10.1); Carbon Dioxide 27 mmol/L (21-32); Chloride 104 mmol/L (98-108); Estimated Glomerular Filt Rate > 60; Glucose 171 mg/dL (70-99); Osmolality Calculated 303 mOsm/kg (285-295); Potassium 3.6 mmol/L (3.5-5.1); Sodium 143 mmol/L (136-145)
[2023-05-28 16:23] LABS: Alanine Aminotransferase 26 U/L (16-63); Bilirubin,Total 0.5 mg/dL (0.00-1.00); Total Protein 6.9 g/dL (6.4-8.2)
[2023-05-28 16:24] LABS: Alkaline Phosphatase 69 U/L (46-116); Cholesterol 160 mg/dL (0-200); HDL Direct 34 mg/dL (40-60); LDL Cholesterol Calculated 72 mg/dL (<130); Triglycerides 272 mg/dL (0-150)
[2023-05-28 17:12] LABS: Aspartate Amino Transferase 15 U/L (15-37)
[2023-05-28 23:11] LABS: Hemoglobin A1C 6.6 % (<5.7)
[2023-05-28 23:33] LABS: Creatinine Urine 294.77 mg/dL (40-278); MALB Creatinine Ratio 15.5 mg/g (0-30); Microalbumin Urine Random 45.9 mg/L
== END 2023-05-28 14:37 | disposition home or self-care (01) ==
LOC: CHSLAB 14:39
PROVIDERS: PCP Family Medicine; Visit Provider Family Medicine
DX: E11.9 Type 2 diabetes mellitus without complications (principal)
CPT/HCPCS: 36415; 80053; 80061; 82043; 83036

== ENCOUNTER 2023-08-15 19:28 | Outpatient (CLI) | payer OTHER, SELFPAY ==
--- NOTE | 2023-09-09 22:52 | WPDSLEEPSTUD ---
Sleep Study Date of Study: 08/15/23 Ordering Provider: Harry Carreno DO Interpreting Physician: Alejandra Ashraf DO Sleep Study Type: Split Polysomnogram Height: 1.78 m Weight: 131.088 kg Body Mass Index: 41.4 Neck Circumference (inches): 20.75 [place]: 2 Reason for Sleep Study Patient is a 57 year old male with history of atrial fibrillation, diabetes, hypertension, dyslipidemia, history or stroke who underwent a sleep study for evaluation of snoring and daytime hypersomnia.? Sleep History He rarely awakens from sleep short of breath.? He never awakens at night with heartburn, belching or cough.? He occasionally snores and never snores loud enough for others to complain. He rarely has trouble sleeping when he has a cold. He never wakes up gasping for breath during the night. He never has breathing problems at night. He occasionally sweats excessively at night. He rarely falls asleep during the day. He does not fall asleep involuntarily and never falls asleep while driving.? He never notices his heart pounding or beating irregularly during the night.? He never experiences loss of muscle tone with strong emotion. He never feels paralyzed on waking or falling asleep. He does not experience vivid dreams upon waking or falling asleep. He rarely feels afraid of going to sleep. He rarely has nightmares. He occasionally recalls his dreams. He rarely has thoughts racing through his mind. He rarely feels sad or depressed. He never feels anxiety or worry about things. He rarely notices parts of his body jerk. He rarely kicks during the night. He occasionally feels crawling or aching feelings in his legs. He occasionally feels leg pain at night. He does not grind his teeth during sleep and never has morning jaw pain. He occasionally feels bothered by pain during the day and is rarely awakened by pain during the night. He rarely wakes up feeling stiff in the morning and rarely wakes up feeling sore and achy in the morning with pain in his neck, spine, or joints. ? Normal bedtime is around 8pm on the weekdays and 11pm on the weekends, usually falling asleep in 15 to 20 minutes. He typically gets about 7 to 8 hours of sleep per night. His wake up time is around 5am on the weekdays and varies on the weekends. He typically wakes up around once or twice per night and can be awake for 5 minutes each, goes to the bathroom and goes back to sleep. He reads or watches television before falling asleep. He does not take naps in the afternoon or evening.? Habits:? Never tobacco smoker. Drinks caffeine. No alcohol or recreational substances.? PMFSH Past Medical History Medical History CVA (cerebral vascular accident) Hypertension Type 2 diabetes mellitus Urolithiasis Vertigo Surgical History Surgical History H/O lithotripsy H/O nephrolithotomy with removal of calculi x2 Hx of tonsillectomy Social History Social History Smoking status: Former smoker Alcohol intake: never Substance use: never Living arrangements: with family Medications Home Medications Medication Instructions Recorded Confirmed Type aspirin 81 mg tablet,delayed See Rx Instructions .Route 05/15/22 06/23/23 Rx release .COMPLEX #90 tabs atorvastatin 40 mg tablet See Rx Instructions .Route 05/15/22 06/23/23 Rx .COMPLEX #90 tabs apixaban 5 mg tablet 5 mg PO BID #180 tabs 05/28/23 06/23/23 Rx metoprolol succinate 25 mg 12.5 mg PO DAILY #90 tabs 05/28/23 06/23/23 Rx tablet,extended release 24 hr amlodipine 10 mg tablet See Rx Instructions .Route 07/02/23 Rx .COMPLEX #30 tabs metformin 500 mg tablet See Rx Instructions .Route 07/07/23 Rx .COMPLEX #180 tabs lisinopril 20 See Rx Instructions .Route 08/21/23 Rx mg-hydrochlorothiazide 25 mg tablet .COMPLEX #90 tabs Sleep Procedure A f
[2023-09-09 23:01] VITALS: BMI 41.4
== END 2023-08-16 06:33 | disposition home or self-care (01) ==
LOC: CHSCSM 19:31
PROVIDERS: PCP Family Medicine; Visit Provider Internal Medicine Cardiovascular Disease
DX: G47.33 Obstructive sleep apnea (adult) (pediatric) (principal); G47.10 Hypersomnia, unspecified
CPT/HCPCS: 95811

== ENCOUNTER 2024-05-10 12:07 | Outpatient (CLI) | payer OTHER, SELFPAY ==
[2024-05-10 12:46] LABS: INR 1.9; Prothrombin Time 19.6 Seconds (9.50-12.1)
== END 2024-05-10 12:08 | disposition home or self-care (01) ==
LOC: CHSLAB 12:10
PROVIDERS: PCP Family Medicine
DX: I48.91 Unspecified atrial fibrillation (principal)
CPT/HCPCS: 36415; 85610

== ENCOUNTER 2024-05-18 11:51 | Outpatient (CLI) | payer OTHER, SELFPAY ==
[2024-05-18 12:06] LABS: Basophils Absolute Auto 0.13 K/mm3 (0.00-0.10); Basophils Percent Auto 2.1 % (0.0-1.0); Eosinophils Percent Auto 9.6 % (1.0-6.0); Hematocrit 48.2 % (40.0-54.0); Hemoglobin 16.4 g/dL (14.0-18.0); Immature Granulocyte Absolute 0.02 K/mm3 (0.00-0.00); Immature Granulocyte Percent A 0.3 % (0.0-0.0); Lymphocytes Absolute Auto 1.72 K/mm3 (1.10-4.50); Lymphocytes Percent Auto 27.6 % (18.0-42.0); Mean Corpuscular Hemoglobin 29.8 pg (27.0-31.0); Mean Corpuscular Volume 87.6 fL (78.0-102.0); Mean Platelet Volume 10.6 fl (8.7-11.0); Monocytes Absolute Auto 0.43 K/mm3 (0.10-0.90); Monocytes Percent Auto 6.9 % (2.0-11.0); Neutrophils Absolute Auto 3.33 K/mm3 (1.70-7.20); Neutrophils Percent Auto 53.5 % (50.0-70.0); Platelet Count Result 277 K/mm3 (150-420); Red Cell Distribution Width 12.1 % (11.6-14.4); White Blood Count 6.2 K/mm3 (4.8-10.8)
[2024-05-18 12:21] LABS: INR 1.9; Prothrombin Time 20.3 Seconds (9.50-12.1)
[2024-05-18 12:47] LABS: Alanine Aminotransferase 31 U/L (16-63); Albumin Level 3.5 g/dL (3.4-5.0); Alkaline Phosphatase 91 U/L (46-116); Anion Gap 9 mmol/L (4-12); Aspartate Amino Transferase 17 U/L (15-37); Bilirubin,Total 0.9 mg/dL (0.00-1.00); Blood Urea Nitrogen 15 mg/dL (7-18); Calcium 8.8 mg/dL (8.5-10.1); Carbon Dioxide 29 mmol/L (21-32); Chloride 101 mmol/L (98-108); Estimated Glomerular Filt Rate 55; Glucose 167 mg/dL (70-99); Magnesium 1.2 mg/dL (1.8-2.4); Osmolality Calculated 292 mOsm/kg (285-295); Potassium 3.9 mmol/L (3.5-5.1); Sodium 139 mmol/L (136-145); Total Protein 6.8 g/dL (6.4-8.2)
[2024-05-18 13:08] LABS: Thyroid Stimulating Hormone Reflex 0.76 u/IU/mL (0.36-3.74)
== END 2024-05-18 11:52 | disposition home or self-care (01) ==
LOC: CHSLAB 11:53
PROVIDERS: PCP Family Medicine; Visit Provider Family Medicine
DX: E03.9 Hypothyroidism, unspecified (principal); Z79.01 Long term (current) use of anticoagulants; R10.9 Unspecified abdominal pain; I48.91 Unspecified atrial fibrillation
CPT/HCPCS: 36415; 80053; 83735; 84443; 85025; 85610

== ENCOUNTER 2024-05-27 12:08 | Outpatient (CLI) | payer OTHER, SELFPAY ==
[2024-05-27 12:43] LABS: INR 2.7; Prothrombin Time 27.8 Seconds (9.50-12.1)
== END 2024-05-27 12:09 | disposition home or self-care (01) ==
PROVIDERS: PCP Family Medicine; Visit Provider Family Medicine
DX: R10.9 Unspecified abdominal pain (principal)
CPT/HCPCS: 36415; 85610

== ENCOUNTER 2024-06-24 20:27 | Emergency (ER) | payer OTHER, SELFPAY ==
[2024-06-24] VITALS (44 sets, daily range): BP systolic 79–223; BP diastolic 54–164; PULSE 60–116; RESP 12–23; TEMP 35.9–36.6; O2SAT 89–100
--- NOTE | ~2024-06-24 | XR_ITS ---
XR chest ET placement Ordering provider: Gilbert Moran MD History: 58 years Male with . ET tube placement . Comparison: None. FINDINGS: Images clipped in the right lung. Endotracheal tube with the tip above the pete by about 1.6 cm. MEDIASTINUM: The cardiac silhouette is moderately enlarged. Congestive shira. LUNGS: Highly suggestive left basal atelectasis with pleural effusion. Bilateral interstitial changes . OTHER: No free air under the diaphragm. Degenerative changes of the spine. IMPRESSION: Endotracheal tube with the tip above the pete by about 1.6 cm. Cardiomegaly with cardiac decompensation and pulmonary edema. Left basilar atelectasis versus pneumonia with pleural effusion. Reviewed, dictated and finalized at location A.
--- NOTE | ~2024-06-24 | CT_ITS ---
CT brain wo con Ordering provider: Gilbert Moran MD History: 58 years Male with . hypertensive emergency . Comparison: None. Technique: CT of the head without contrast. Radiation reduction technique utilized. The dose-length product was 605.33 mGy-cm. FINDINGS: BRAIN PARENCHYMA AND CSF SPACES: Acute hemorrhage is seen in the anterior horns, foramina of [place] an d in the third ventricle. Blood also seen in the aqueduct of [place] and large hematoma is seen in th e right cerebellar hemisphere measuring 3.5 x 2.3 cm.. Blood also seen in the fourth ventricle. Hypod ensity seen in the right cerebellar hemisphere posteriorly most likely old infarct. No midline shift, or mass effect. The brain parenchyma and CSF spaces are otherwise normal. VISUALIZED PARANASAL SINUSES: Well aerated. MASTOIDS: Well aerated. BONES: The bones appear intact. SOFT TISSUES: Visualized nasopharynx is normal. Superficial soft tissues are normal. IMPRESSION: Intracranial hemorrhage involving the right cerebellar hemisphere and extending to the fourth, third and lateral ventricles. Physician: Gilbert Moran MD Was notified with the result of the patient at 9:12 PM on June 24, 2024 Reviewed, dictated and finalized at location A.
--- NOTE | 2024-06-24 20:31 | ECG_ITS ---
Test Date: 2024-06-24 21:31:47 Measurements Intervals [place] Rate: 90 P: 0 AL: 0 QRS: 111 QRSD: 121 T: 42 QT: 415 QTc: 509 Interpretive Statements ATRIAL FLUTTER/TACHYCARDIA RIGHT AXIS DEVIATION INTRAVENTRICULAR CONDUCTION DELAY DELAYED PRECORDIAL R/S TRANSITION BORDERLINE ST-T WAVE ABNORMALITY- INFERIOR LEADS ABNORMAL ECG No previous ECG available for comparison Electronically Signed On 06-25-2024 06:41:42 CDT by Harry Carreno D.O.
[2024-06-24 20:33] LABS: Glucose Point of Care 219 mg/dl (65-105)
--- NOTE | 2024-06-24 20:38 | PC.NURSE ---
patient taken down to CT via stretcher with this RN
[2024-06-24] MEDS: METOCLOPRAMIDE HCL INJ 10 MG/2 ML VIAL IV PUSH (20:46)
[2024-06-24 20:52] LABS: Basophils Absolute Auto 0.12 K/mm3 (0.00-0.10); Basophils Percent Auto 1.3 % (0.0-1.0); Eosinophils Absolute Auto 0.46 K/mm3 (0.02-0.50); Hematocrit 44.7 % (40.0-54.0); Hemoglobin 14.9 g/dL (14.0-18.0); Immature Granulocyte Absolute 0.04 K/mm3 (0.00-0.00); Immature Granulocyte Percent A 0.4 % (0.0-0.0); Lymphocytes Absolute Auto 2.06 K/mm3 (1.10-4.50); Lymphocytes Percent Auto 22.4 % (18.0-42.0); Mean Corpuscular HGB Conc 33.3 g/dL (32-36); Mean Corpuscular Volume 90.1 fL (78.0-102.0); Mean Platelet Volume 11.5 fl (8.7-11.0); Monocytes Absolute Auto 0.69 K/mm3 (0.10-0.90); Monocytes Percent Auto 7.5 % (2.0-11.0); Neutrophils Absolute Auto 5.84 K/mm3 (1.70-7.20); Neutrophils Percent Auto 63.4 % (50.0-70.0); Platelet Count Result 190 K/mm3 (150-420); Red Blood Count 4.96 M/mm3 (4.70-6.10); Red Cell Distribution Width 14.4 % (11.6-14.4); White Blood Count 9.2 K/mm3 (4.8-10.8)
--- NOTE | 2024-06-24 21:11 | PC.NURSE ---
spoke with daughter about plan of care and about transfer, updated as well.
--- NOTE | 2024-06-24 21:11 | PC.NURSE ---
[id number] Radiologist from [place] called to speak with Dr. Moran
[2024-06-24 21:16] LABS: Alanine Aminotransferase 21 U/L (16-63); Albumin Level 3.8 g/dL (3.4-5.0); Alkaline Phosphatase 77 U/L (46-116); Anion Gap 10 mmol/L (4-12); Aspartate Amino Transferase 15 U/L (15-37); Bilirubin,Total 0.7 mg/dL (0.00-1.00); Blood Urea Nitrogen 21 mg/dL (7-18); Calcium 8.4 mg/dL (8.5-10.1); Carbon Dioxide 27 mmol/L (21-32); Chloride 101 mmol/L (98-108); D Dimer 0.27 mg/L (0.19-0.50); Estimated CRCL calculation 68 ml/min; Estimated Glomerular Filt Rate 50; Glucose 181 mg/dL (70-99); Magnesium 1.7 mg/dL (1.8-2.4); NT Pro B Type Natriuretic Pept 1189 pg/mL (0-125); Osmolality Calculated 294 mOsm/kg (285-295); Partial Thromboplastin Time 37.7 Sec (23.9-30.70); Potassium 3.4 mmol/L (3.5-5.1); Prothrombin Time 39.7 Seconds (9.50-12.1); Sodium 138 mmol/L (136-145); Thyroid Stimulating Hormone 0.93 uIU/mL (0.36-3.74); Total Protein 7.4 g/dL (6.4-8.2); Troponin I 19.3 ng/L (0.00-60.4)
[2024-06-24 21:18] LABS: CRP < 0.5 mg/dL (0.0-0.9)
[2024-06-24 21:27] LABS: Add Urine Microscopic? YES; Appearance Urine Clear (Clear); Bilirubin Urine Negative (Negative); Blood Urine 2+ (Negative); Color Urine Light Yellow (Yellow); Glucose Urine UA 1+ (Negative); Ketones Urine Negative (Negative); Leukocyte Esterase Ur Negative LEU/UL (Negative); Nitrate Urine Negative (Negative); Protein Urine 3+ (Negative); Specific Grav Ur 1.025 (1.010-1.020); Urobilinogen Urine 0.2 mg/dL (0.2-1.0)
[2024-06-24] MEDS: niCARdipine 20 MG/200 ML 20 MG/200 ML BAG 50 MG IV CONT (21:30)
[2024-06-24 21:34] LABS: SARS-CoV-2 RNA PCR Negative (Negative)
[2024-06-24 21:36] LABS: Bacteria Urine None seen /hpf; Squamous Epithelial Cell Urine None seen /hpf (Few); WBC Urine 0-3 /hpf (0-3)
[2024-06-24 21:37] LABS: Influenza A QL RT-PCR Negative (Negative); Influenza B QL RT-PCR Negative (Negative); RSV RNA, RT-PCR Negative (Negative)
[2024-06-24 21:42] LABS: Amphetamine Screen Urine Negative (Negative); Benzodiazepines Screen Urine Negative (Negative); Cannabinoid Screen Urine Negative (Negative); Cocaine Screen Urine Negative (Negative); Methadone Screen Urine Negative (Negative); Opiate Screen Urine Negative (Negative); Phencyclidine Screen Urine Negative (Negative)
--- NOTE | 2024-06-24 21:44 | PC.NURSE ---
this RN and security system technician noticed brain bleed on CT, this RN called ERP, activated Code Stroke at this time.
--- NOTE | 2024-06-24 21:47 | PC.NURSE ---
patient brought back to room via stretcher.
[2024-06-24 21:51] LABS: Barbiturate Screen Urine Negative (Negative)
[2024-06-24] MEDS: SODIUM CHLORIDE 0.9% IVPB (21:55)
[2024-06-24] MEDS: PHYTONADIONE ADULT IVPB (21:55)
--- NOTE | 2024-06-24 22:00 | PC.NURSE ---
DR MOBLEY SPOKE WITH DR FERRIS AND DR MINAYA ABOUT ADMISSION FOR ICU AT [facility]. DR FERRIS WISHES FOR PATIENT TO ARRIVE BY HELICOPTER AND NEEDS PATIENT TO BE INTUBATED PRIOR TO DEPARTURE [facility] OUR FACILITY.
[2024-06-24] MEDS: RAPID SEQUENCE INTUBATION KIT 1 EACH (22:10)
[2024-06-24] MEDS: PROPOFOL IV EMULSION 100 ML 36.47 MG IV CONT ×2 (22:17→23:47)
[2024-06-24] MEDS: SODIUM CHLORIDE 0.9% IV 250 ML 30 ML IV CONT (22:26)
--- NOTE | 2024-06-24 22:26 | ED.NEUROSD ---
HPI - Neuro Symptoms/Deficit General Chief Complaint: Suspected CVA Stated Complaint: vomiting Time Seen by Provider: 06/24/24 20:30 Source: patient, family and EMS Mode of arrival: EMS Limitations: altered mental status, physical limitation and clinical condition History of Present Illness HPI Narrative: this is a 58-year-old male with a history of hypertension atrial fibrillation diabetes history of previous CVA that presents to the emergency department via EMS after EMS was called to the home with elevated blood pressure with headache and nausea and vomiting. Patient brought to the emergency department initially had a blood pressure of systolic of 245 with a lethargic with nausea vomiting and patient was complaining of a headache. Patient has history of chronic back pain and atrial fibrillation currently on Coumadin. Onset (ago): hour(s) Time: 22:28 Last Observed Normal: 17:19 Timing confirmed by: spouse Location: altered Severity: severe Context: gradual onset On Anticoagulants: Yes Associated symptoms: confusion, headaches, nausea/vomiting and vertigo Related Data Home Medications Medication Instructions Recorded Confirmed omega 0-cat-ruw-fish oil 300 1 cap PO DAILY 11/10/23 06/24/24 mg-1,000 mg capsule (Fish Oil) amiodarone 200 mg tablet 200 mg PO BID 05/18/24 06/24/24 metoprolol succinate 25 mg 25 mg PO DAILY 05/18/24 06/24/24 tablet,extended release 24 hr Allergies Allergy/AdvReac Type Severity Reaction Status Date / Time meclizine Allergy Unknown extreme Verified 06/24/24 21:19 fatigue ondansetron Allergy Unknown Unknown Verified 06/24/24 21:19 IVP dye Allergy Intermediate Hives Uncoded 06/24/24 21:19 Review of Systems Review of Systems: All systems reviewed & are unremarkable except as noted in HPI and below PMFSH Past Medical History Medical History CVA (cerebral vascular accident) Hypertension lobsterman current use of anticoagulant Type 2 diabetes mellitus Urolithiasis Vertigo Surgical History Surgical History H/O lithotripsy H/O nephrolithotomy with removal of calculi x2 Hx of tonsillectomy Social History Social History Smoking status: Former smoker Alcohol intake: never Substance use: never Living arrangements: with family Exam Const: General: in distress Orientation/consciousness: confusion and lethargic Limitations: altered mental status HENMT: Face and sinus: normal facial exam Throat: posterior oropharynx normal Eyes: General: appearance normal, both eyes and all related structures Sclera: sclerae normal Neck: Neck: normal visual inspection, full ROM and no lymphadenopathy Chest: Chest palpation & inspection: normal inspection of the chest and normal palpation of entire chest wall Resp: Effort & Inspection: normal respiratory effort and able to speak in complete sentences Cardio: Palpation: normal PMI Rate: regular rate Rhythm: abnormal rhythm GI: Inspection: normal to inspection : General: Yes bimanual renal exam normal bilaterally Skin: General skin exam: normal color and no rashes or lesions noted Neuro: General: oriented to place and oriented to time Speech: normal speech Gait exam (Neuro): Unable to assess gait Motor exam (neuro): Pronator motor function not present, No tremor noted, No asterixis and Motor fasciculations not present Extrem: General: normal to inspection, full ROM and capillary refill normal Course Course Emergency Course: Patient had CT scan which showed a significant large hematoma in the right cerebellar hemisphere. With initially a blood pressure of 245 systolic the patient did receive labetalol in route to the hospital via EMS. Patient had an EKG which shows atrial fibrillation with a heart rate of 90. Patient with a INR of 4.0. Patient with
[2024-06-24] MEDS: SODIUM CHLORIDE 0.9% IV 1,000 ML 999 ML (22:36)
[2024-06-24 23:52] LABS: Reflex Lactic Acid Yes or No Add Lactic
== END 2024-06-24 23:47 | disposition short-term general hospital (02) ==
PROVIDERS: Emergency Provider Emergency Medicine; PCP Family Medicine
DX: I61.9 Nontraumatic intracerebral hemorrhage, unspecified (principal); I16.1 Hypertensive emergency; I10 Essential (primary) hypertension; I48.91 Unspecified atrial fibrillation; E11.9 Type 2 diabetes mellitus without complications; Z86.73 Personal history of transient ischemic attack (TIA), and cerebral infarction without residual deficits; Z79.01 Long term (current) use of anticoagulants; Z87.891 Personal history of nicotine dependence; Z79.899 Other long term (current) drug therapy
CPT/HCPCS: 31500; 36415; 36430; 70450; 80053; 80307; 81001; 82948; 83605; 83735; 83880; 84443; 84484; 85025; 85380; 85610; 85730; 86140; 86900; 86901; 87637; 93005; 96365; 96368; 96375; 99291; J0330; J2250; J2404; J2704; J2765; J3430; J7030; J7050; P9017